=== PATIENT | male | born 1995 | race African-American/Black ===

== ENCOUNTER 2019-12-13 08:48 | Emergency (ER) | payer OTHER ==
[~2019-12-13] VITALS: Ht 172.7 cm; Wt 77.1 kg
[2019-12-13] MEDS ORDERED: IBUPROFEN 800800 MG PO (09:37)
[2019-12-13 10:17] VITALS: BP 131/87
== END 2019-12-13 10:16 ==
LOC: ER 08:48
DX: S62.303A Unspecified fracture of third metacarpal bone, left hand, initial encounter for closed fracture (principal); S62.305A Unspecified fracture of fourth metacarpal bone, left hand, initial encounter for closed fracture; M79.641 Pain in right hand; V89.2XXA Person injured in unspecified motor-vehicle accident, traffic, initial encounter; Y93.I9 Activity, other involving external motion; Y92.488 Other paved roadways as the place of occurrence of the external cause; Y99.8 Other external cause status